=== PATIENT | male | born 1985 | race Caucasian/White ===

== ENCOUNTER 2018-02-02 21:49 | Emergency (ER) | payer SELFPAY ==
--- NOTE | 2018-02-02 22:41 | ER Document Report ---
ED Psych Disorder / Suicide - General Chief Complaint: Suicidal Ideation Stated Complaint: PSYCH Time Seen by Provider: 02/02/18 22:23 Mode of Arrival: Ambulatory Information source: Patient Notes: 32-year-old male brought to the emergency department by his for suicidal ideations. Patient contacted his bobby stating that he wanted to overdose on drugs because he's depressed. He states that he would be better off . Wouldn't mind overdosing on heroin. He can't find anything that makes him happy. didn't know what else to do besides bring him to the ED. Patient suffers from depression. On zoloft. Last saw a therapist 3 months ago. No suicide attempt. No homicidal ideations. No delusions, hallucinations. Patient says he's been abusing drugs to help cope with his depression. He wants to get off the drugs. Says he's been using cocaine, marijuana, heroin, meth, ETOH. Last used this evening. TRAVEL OUTSIDE OF THE [place] IN LAST 30 DAYS: No - HPI Patient complains to provider of: Suicidal ideation, Suicidal plan Onset: Just prior to arrival Onset was: Gradual Quality of pain: No pain Severity: Severe Suicide Risk Factors: Depressed, Lack of social support, Male, Substance abuse, Other mental health dx. Situational problems related to: Significant other Suicide Attempt Method: Overdose Overdose of: Other - heroin Normal mood: No Associated symptoms: Depressed Similar symptoms previously: Yes Recently seen / treated by doctor: No - Related Data Allergies/Adverse Reactions: Sulfa (Sulfonamide Antibiotics) Allergy (Verified 04/23/14 06:19) Past Medical History - Social History Smoking Status: Current Every Day Smoker Family History: Reviewed & Not Pertinent - Immunizations Hx Diphtheria, Pertussis, Tetanus Vaccination: Yes Hx Pneumococcal Vaccination: 12/26/13 Review of Systems - Review of Systems Constitutional: No symptoms reported EENT: No symptoms reported Cardiovascular: No symptoms reported Respiratory: No symptoms reported Gastrointestinal: No symptoms reported Genitourinary: No symptoms reported Male Genitourinary: No symptoms reported Musculoskeletal: No symptoms reported Skin: No symptoms reported Hematologic/Lymphatic: No symptoms reported Neurological/Psychological: Suicidal ideation -: Yes All other systems reviewed and negative Physical Exam - Vital signs Vitals: Temp Pulse Resp BP Pulse Ox 97.7 F 66 18 125/67 98 02/02/18 22:10 02/02/18 22:10 02/02/18 22:10 02/02/18 22:10 02/02/18 22:10 - General Notes: PHYSICAL EXAMINATION: GENERAL: No acute distress. Appears high on drugs HEAD: Atraumatic, normocephalic. EYES: Pupils equal round and reactive to light, extraocular movements intact, sclera anicteric, conjunctiva are normal. ENT: Nares patent, oropharynx clear without exudates. Moist mucous membranes. NECK: Normal range of motion, supple without lymphadenopathy LUNGS: Breath sounds clear to auscultation bilaterally and equal. No wheezes rales or rhonchi. HEART: Regular rate and rhythm without murmurs ABDOMEN: Soft, nontender, nondistended abdomen. No guarding, no rebound. No masses appreciated. Musculoskeletal: Normal range of motion, no pitting or edema. No cyanosis. NEUROLOGICAL: Cranial nerves grossly intact. Normal speech, normal gait. Normal sensory, motor exams PSYCH: Suicidal ideations. SKIN: Warm, Dry, normal turgor, no rashes or lesions noted. Course - Re-evaluation Re-evalutation: 02/02/18 23:09 EKG: Ventricular rate 52, CT interval 180, castration 120, QTc 410. Normal sinus rhythm. No ST segment elevation. 02/03/18 06:03 Patient signed out to oncoming physician. UA and urine drug screen still pending. IVC papers completed. - Vital Signs Vital signs: Temp Pulse Resp BP Pulse Ox 97.7 F 66 18 125/67 98 02/02/18 22:10 02/02/18 22:10 02/02/18 22:10 02/02/18 22:10 02/02/18 22:10 - Laboratory Result Diagrams: 02/02/18 23:25 02/02/18 23:25 Laboratory results interpreted by me: 02/02/18 02/02/18 23:25 23:25 RBC 4.34 L Hgb 13.3 L Hct 36.8 L MCHC 36.1 H Monocytes % 13.9 H Salicylates < 1.0 L Acetaminophen < 10 L Discharge - Discharge Clinical Impression: Suicidal ideation
[2018-02-02 23:43] LABS: ABSOLUTE BASOPHILS # (AUTO) 0.1 10^3/uL (0.0-0.2); ABSOLUTE EOSINOPHILS # (AUTO) 0.3 10^3/uL (0.0-0.6); ABSOLUTE LYMPHOCYTES (AUTO) 2.4 10^3/uL (0.5-4.7); ABSOLUTE MONOCYTES (AUTO) 1.1 10^3/uL (0.1-1.4); ABSOLUTE NEUT (AUTO) 3.9 10^3/uL (1.7-8.2); BASOPHILS % (AUTO) 0.7 % (0-2); EOSINOPHILS % (AUTO) 4.1 % (0-6); HEMATOCRIT 36.8 % (37.9-51.0); HEMOGLOBIN 13.3 g/dL (13.5-17.0); LYMPHOCYTES % (AUTO) 30.6 % (13-45); MEAN CORPUSCULAR HEMOGLOBIN 30.6 pg (27.0-33.4); MEAN CORPUSCULAR HGB CONC 36.1 g/dL (32.0-36.0); MEAN CORPUSCULAR VOLUME 85 fl (80-97); MONOCYTES % (AUTO) 13.9 % (3-13); PLATELET COUNT 260 10^3/uL (150-450); RED BLOOD COUNT 4.34 10^6/uL (4.35-5.55); RED CELL DISTRIBUTION WIDTH 13.3 % (11.5-14.0); SEGMENTED NEUTROPHILS % (AUTO) 50.7 % (42-78); TOTAL CELLS COUNTED % (AUTO) 100 %; WHITE BLOOD COUNT 7.7 10^3/uL (4.0-10.5)
[2018-02-02 23:51] LABS: ALANINE AMINOTRANSFERASE 22 U/L (21-72); ALBUMIN 3.9 g/dL (3.5-5.0); ALKALINE PHOSPHATASE 52 U/L (38-126); ANION GAP 12 (5-19); ASPARTATE AMINO TRANSFERASE 18 U/L (17-59); BILIRUBIN,DIRECT 0.1 mg/dL (0.0-0.4); BILIRUBIN,TOTAL 0.7 mg/dL (0.2-1.3); BLOOD UREA NITROGEN 11 mg/dL (7-20); CALCIUM 9.5 mg/dL (8.4-10.2); CARBON DIOXIDE 29 mmol/L (22-30); CHLORIDE 101 mmol/L (98-107); GLUCOSE 90 mg/dL (75-110); POTASSIUM 3.6 mmol/L (3.6-5.0); SODIUM 142.3 mmol/L (137-145); TOTAL PROTEIN 6.8 g/dL (6.3-8.2)
[2018-02-02 23:52] LABS: ACETAMINOPHEN < 10 ug/mL (10-30); ALCOHOL < 10 mg/dL (NONE DETECTED); SALICYLATE < 1.0 mg/dL (2.0-20.0)
--- NOTE | 2018-02-03 07:22 | EKG REPORT ---
SEVERITY:- ABNORMAL ECG - SINUS RHYTHM IVCD, CONSIDER ATYPICAL RBBB : Confirmed by: Bj Pope MD 03-Feb-2018 07:21:40
[2018-02-03 08:05] LABS: APPEARANCE,URINE CLEAR; BILIRUBIN,URINE NEGATIVE (NEGATIVE); COLOR,URINE YELLOW; GLUCOSE, URINE NEGATIVE (NEGATIVE); KETONES,URINE NEGATIVE (NEGATIVE); LEUKOCYTE ESTERASE,URINE NEGATIVE (NEGATIVE); NITRITE,URINE NEGATIVE (NEGATIVE); PROTEIN,URINE NEGATIVE (NEGATIVE); URINE SPECIFIC GRAVITY 1.018
[2018-02-03 08:14] LABS: URINE BARBITURATES SCREEN NEGATIVE; URINE BENZODIAZEPINES SCREEN NEGATIVE; URINE MARIJUANA (THC) SCREEN NEGATIVE; URINE METHADONE SCREEN NEGATIVE; URINE PHENCYCLIDINE SCREEN NEGATIVE
[2018-02-03 09:35] LABS: URINE COCAINE SCREEN NEGATIVE
--- NOTE | 2018-02-03 10:13 | ER Document Report ---
Doctor's Note Notes: 02/03/18 10:12 Rounds: Chart reviewed and patient not interviewed because he sleeping and did not respond to my calling his name twice. Patient is being evaluated for suicidal thoughts. Also depression. Also substance abuse. Patient acknowledges taking or using cocaine, marijuana, heroin, methamphetamine, and alcohol. Lab studies were all normal except for the patient testing positive for opiates and amphetamines. Vital signs are all essentially normal. Patient has been started on his Zoloft which he has been taking for depression. Patient appears to be medically stable for transfer or discharge. Rand Izquierdo MD
[2018-02-03 10:38] VITALS: BP 105/53
== END 2018-02-03 10:38 | disposition home or self-care (01) ==
LOC: ER 21:49
DX: R45.851 Suicidal ideations (principal); F32.9 Major depressive disorder, single episode, unspecified; F19.10 Other psychoactive substance abuse, uncomplicated; F17.200 Nicotine dependence, unspecified, uncomplicated; Z88.2 Allergy status to sulfonamides
CPT/HCPCS: 36415; 80053; 80307; 81001; 85025; 93005; 93010; 99285